=== PATIENT | male | born 1975 | race Caucasian/White ===

== ENCOUNTER 2019-10-05 05:32 | Inpatient (IN) ==
--- NOTE | 2019-09-24 10:38 | History & Physical Report ---
Date of Service September 24, 2019 Assessment & Plan (1) Neurogenic claudication due to lumbar spinal stenosis: At this time I am recommending urgent lumbar decompression fusion at L3-4 and L4-5. This would allow adequate neural decompression and reconstruction of the disc heights. Would help us address lateral recess stenosis and neuroforaminal disease. Patient has marked strength deficits and hopefully urgent procedure will limit his risk for permanent nerve damage weakness and neurologic sequela Present on Admission?: Yes History of Present Illness Chief Complaint: Back with bilateral leg pain and weakness Primary Care Provider: NO PCP This is a 44-year-old male who presents with marked decline in status describing numbness and weakness affecting the bilateral lower extremities. At this time he states his right leg is worse than the left. He describes on the buttocks anterior thigh extending below the knees. Any changes of position standing and walking exacerbate his pain. He can only ambulate a few yards before the pain is incapacitating. He is unable to ascend and descend steps secondary to quad weakness and he describes a right foot drop. Physical Exam Physical Exam: Patient is alert and oriented He is in obvious distress. He is able to stand stooped posture for a few seconds before he request to sit down. He demonstrates significant sensory deficits to the anterior thighs and anterior tibias. He has diminished deep tendon reflexes. He has a 4 5 bilateral quadriceps strength and a foot drop at a 3/5 on the right. Heart is regular rate and rhythm Lungs clear to auscultation Results & Data Diagnostic Findings MRI lumbar spine demonstrates evidence of massive disc herniation at L3-L4 with caudal migration. L4-5 is severe degenerative change and bilateral neuroforaminal stenosis. Axillary views demonstrate broad-based massive disc condition with caudal migration. There is also central disc herniation at L4-5. Both levels demonstrate significant neural displacement and spinal stenosis.
--- NOTE | 2019-09-27 20:31 | Anesthesiology Consultation ---
Date of Service September 27, 2019 Assessment & Plan (1) Encounter for pre-operative examination: PCP Clearance 09/21/19 = "Stable for surgery. History of coding during prior back surgerypatient is not aware of why this occurred, blamed on dehydration but seems unlikely ?Electrolytes. Holter 2011 was essentially normal, echo 2011 normal. Cardiology clearance requested." Patient to see cardiology 09/30 for pre-op clearance. Will attempt to obtain 2003 microdiscectomy records Chart Review Chart Review: Acceptable Risk for Surgery (Pending cardiology clearance) and Patient NOT seen in Pre Admission Testing History Surgery Operation Date: 10/05/19 07:15 Proposed Procedures p L3-L5 Decompression and Fusion; Spinal Cord Monitoring - Ronald Vera DO Height/Weight Height: 6 ft 1 in Weight: 105.959 kg Allergies Allergy/AdvReac Type Severity Reaction Status Date / Time oseltamivir [From Tamiflu] AdvReac Mild Tachycardia Verified 09/26/19 10:14 Penicillins AdvReac Mild Verified 09/26/19 10:14 Medications Home Medications Medication Instructions Recorded Confirmed Last Taken aspirin 81 mg PO QAM 09/26/19 09/26/19 Unknown cyclobenzaprine 10 mg PO BID 09/26/19 09/26/19 Unknown gabapentin 600 mg PO BID 09/26/19 09/26/19 Unknown simvastatin [Zocor] 20 mg PO HS 09/26/19 09/26/19 Unknown Past Medical History Medical History Abnormal EKG PT WAS SEEN BY PCP ON 09/21/2019 (DR. XAVIER, [facility] [place]), DISCOVERED AN "ABNORMAL EKG, THAT SHOWED A POSSIBLY HEART ATTACK WITHIN THE LAST 8 YEARS. PATIENT IS TO SEE CARDIOLOGY 10/01/2019 FOR CLEARANCE. Cholecystitis PATIENT IS TO HAVE HIS GALLBLADDER REMOVED AFTER HIS BACK SURGERY. Chronic kidney disease STAGE II - FOLLOWED WITH DR. DALEY IN [place] - ORDERED RECENT LAB WORK THROUGH THE [place]. WAS DONE ON 09/21/2019. Family history of reaction to anesthesia PATIENT MOTHER USUALLY GOES "TOO DEEP" WITH ANESTHESIA. UNKNOWN DETAILS. GERD (gastroesophageal reflux disease) OCCASIONALLY - OTC MEDICATIONS USED PRN History of anesthesia reaction PATIENT CODED X 2 WITH MICRODISCECTOMY SURGERY AT [facility] IN [place]. HIS SURGERY WAS DR. DAVID ALEGRIA. NO ANESTHESIA PRIOR TO OR SINCE THIS TIME. 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 PATIENT CODED ON THE OR TABLE X 2. Past Anesthesia History PATIENT REPORTS HE "CODED ON THE TABLE TWICE" DURING A MICRODISCECTOMY IN 2003. NO OTHER SURGICAL HISTORY. PT UNABLE TO PROVIDE DETAILS. Social History Smoking Status: Current every day smoker Smoking cigarettes per day: 1 PPD Do You Dip or Chew Tobacco: No Hx Alcohol Use: No Hx Substance Use: No Testing Laboratory Results 09/21/19 WBC: 9.7 H/H: 18/55 PLATELETS: 180 SODIUM: 140 POTASSIUM: 3.8 CHLORIDE: 103 CO2: 25 BUN: 9 CREATININE: 1.20 GLUCOSE: 90 A1C 5.8% Electrocardiogram Date: 09/21/19 Findings: + NSR @ (89bpm) PRWP V1-V3. No significant change compared to EKG from 11/20/11. *PCP felt the changes were significant, pt is to see cardio for clearance prior to surgery on 09/30.
[~2019-10-05 05:32] MED LIST: GENERAL ORDER PROBLEM SCH
[2019-10-05] MEDS ORDERED: LR 15ML/HR IV SCH (06:00)
[2019-10-05] MEDS ORDERED: GABAPENTIN 900 MG DOSE PO SCH (06:00)
[2019-10-05] MEDS ORDERED: CLINDAMYCIN 600 MG/54 ML BAG IV SCH (06:00)
--- NOTE | 2019-10-05 06:29 | XRay Report ---
XR chest Pre-admission PA/Lat CLINICAL HISTORY: Preoperative evaluation. COMPARISON STUDY: No previous studies for comparison. FINDINGS: Lung volumes are normal. Lungs are clear. There is no pneumothorax or pleural effusion. Car diac size is normal. Mediastinal contours are normal. There is no evidence for pulmonary edema. IMPRESSION: No acute cardiopulmonary findings. ACT 112: Negative or not required by law. Electronically signed by: Fercho Geller M.D. 10/05/2019 6:28 AM
[2019-10-05] MEDS ORDERED: BACITRACIN INJ 50,000 UNIT VIAL ONE (06:57)
[2019-10-05] MEDS ORDERED: BUPIVACAINE/EPINEPHRINE 0.5% MPF 1:200,000 10 ML VIAL ONE (06:57)
[2019-10-05] MEDS ORDERED: fentaNYL citrate 100 MCG/2 ML VIAL ONE ×2 (07:10→10:27)
[2019-10-05] MEDS ORDERED: LIDOCAINE 2% JELLY 5 ML TUBE ONE (07:12)
--- NOTE | 2019-10-05 07:23 | History & Physical Bridge Note ---
Date of Service October 05, 2019 History & Physical Bridge Note I have examined the patient, reviewed the History & Physical and in the interval since the performance of the History & Physical I have noted the following changes of clinical significance: no changes noted
[2019-10-05] MEDS ORDERED: ATROPINE SULFATE 0.1 MG/ML 10ML SYR IV PRN (07:25)
[2019-10-05] MEDS ORDERED: ePHEDrine sulfate 50 MG/ML AMP IV PRN (07:25)
[2019-10-05] MEDS ORDERED: fentaNYL citrate 100 MCG/2 ML VIAL IV PRN (07:25)
[2019-10-05] MEDS ORDERED: HYDROmorphone INJ 2 MG/ML SYR/VIAL IV PRN (07:25)
[2019-10-05] MEDS ORDERED: PROMETHAZINE HCL 12.5 MG in SODIUM CHLORIDE 0.9% 50 ML IV PRN ×2 (07:25→11:51)
[2019-10-05] MEDS ORDERED: ONDANSETRON INJ 2 MG/ML 2 ML VIAL IV PRN ×2 (07:25→11:51)
[2019-10-05] MEDS ORDERED: LIDOCAINE HCL 2% 2 ML VIAL/AMP(20MG/ML) INFIL ONE (08:31)
[2019-10-05] MEDS ORDERED: PROPOFOL IV EMULSION 10 MG/ML 20 ML VIAL IV ONE (08:31)
[2019-10-05] MEDS ORDERED: FLOSEAL HEMOSTATIC MATRIX 10ML TOP ONE (09:27)
[2019-10-05] MEDS ORDERED: PHENYLEPHRINE 100MCG/ML 5ML SYR ONE (09:30)
[2019-10-05] MEDS ORDERED: DEXAMETHASONE SOD INJ 4 MG/ML VIAL ONE (09:30)
[2019-10-05] MEDS ORDERED: ONDANSETRON INJ 2 MG/ML 2 ML VIAL ONE (09:30)
--- NOTE | 2019-10-05 10:11 | Fluoroscopy Report ---
FL lumbar spine 2-3V CLINICAL HISTORY: L3-L5 DECOMPRESSION AND FUSION COMPARISON STUDY: None FLUOROSCOPY TIME: 22nd. NUMBER OF FLUOROSCOPIC IMAGES: 2 FINDINGS: 2 intraoperative fluoroscopic spot images reveal postsurgical changes of an L3-4, and L4-5 discectomy and interbody fusion. There is posterior pedicle screw fixation with L3, L4, and L5 pedicl e screws and adjoining spinal rods. Postlaminectomy defects are visualized IMPRESSION: Postsurgical changes of an L3-5 spinal decompression and interbody fusion with pedicle s crew fixation ACT 112: Negative or not required by law. Electronically signed by: Galen Diane M.D. 10/05/2019 10:10 AM
--- NOTE | 2019-10-05 10:30 | Operative Report ---
Post Operative Report Pre & Post Diagnosis Operation Date: 10/05/19 07:15 Pre-Op Diagnosis: Spinal Stenosis, Lumbar Region with Neurogenic Claudication Post-Op Diagnosis: Spinal Stenosis, Lumbar Region with Neurogenic Claudication I identified the patient and participated in the time-out.: Yes Procedure Operation Date: 10/05/19 07:15 Actual Procedures #1 revision decompression with bilateral medial facetectomies and foraminotomies L3-4 L4-5. #2 posterior spinal fusion L3-4 L4-5. #3 placement posterior instrumentation L3-4 L4-5. #4 interbody fusion L3-4 L4-5. #5 placement of titanium cage 12 x 26 mm L3-4 L4-5. #6 placement locally harvested morselized autograft in the posterior lateral gutters. #7 placement infuse collagen sponge, master graft in the posterior lateral gutters and ostial amp and interbody space. Surgeon Ronald Vera, Duplicating Machine Mechanic None Estimated Blood Loss 200 Findings Consistent with Post-Op Diagnosis Specimens None Indications This is a 44-year-old male who presents with marked decline in status worsening weakness and limitations. Subsequently is here for urgent decompression fusion. Description of Procedure Patient was met with identified informed consent obtained. Patient was then taken to the operative suite underwent an patient placed in a prone position the Weston table on top of the Fly frame. All bony prominences well-padded eyes inspected to ensure no external pressure placed upon them. This point the lumbar spine was prepped and draped in normal sterile fashion. Sharp dissection with the assistance of Bovie cautery was performed down to and exposing the lamina and transverse processes of L3-L4-L5. Revision complete laminectomy of L4 and L3 including bilateral medial facetectomies and foraminotomies was then performed. Pedicle screws were then placed in L3-L4-L5 bilaterally with assistance of fluoroscopy and appropriate sized janna placed. Believe a transforaminal approach on the right complete discectomy of L3-4 was performed endplates coated to subcortical bleeding bone and a 11 x 26 mm titanium cage filled with osteo-bone graft tapped in position. I then proceeded to L for 5 and on the left complete discectomy was performed through a transforaminal approach. Endplates curetted to subcortical bleeding bone and 11 x 26 mm titanium cage filled with osteo-amp bone graft tapped in position. The rods were then locked in final position bilaterally. The transverse processes of L3 L4-5 burred to subcortical bleeding bone. Infuse collagen sponge master graft local autograft was then placed in the posterior lateral gutters. 15 round FAY drain inserted. The incision was then closed with 1 Vicryl in the fascia 2-0 Vicryl subcutaneously and 4 Monocryl for final skin closure. Steri-Strips dressings placed. Patient will continue PACU stable addition. Please note spinal cord monitoring was utilized that the procedure no changes noted. I attest to the content of the Intraoperative Record and any orders documented therein. Any exceptions are noted below.
--- NOTE | 2019-10-05 11:28 | Anesthesiology Progress Note ---
Date of Service October 05, 2019 Anesthesia Post Procedure Vital Signs Vital Signs: Temp Pulse Pulse Resp BP BP Pulse Ox 10/05/19 11:20 73 17 132/86 100 10/05/19 11:10 74 11 L 142/93 H 100 10/05/19 11:01 36.1 C L 70 12 138/95 99 10/05/19 06:01 36.5 C 90 18 137/93 98 Pain Intensity Bilateral Lower Back: Pain Intensity: 0 Transfer of Care Handoff Completed per policy Notes Mental Status: alert / awake / arousable and participated in evaluation Patient Amnestic to Procedure: Yes Nausea / Vomiting: adequately controlled Pain: adequately controlled Airway Patency, RR, SpO2: stable & adequate BP & HR: stable & adequate Hydration State: stable & adequate Anesthetic Complications: no major complications apparent and Pt Satisfied with anesthetic care
[2019-10-05] MEDS ORDERED: SOD PHOSPHATE/SOD BIPHOSPHATE ENEMA 132 ML BTL PR PRN (11:51)
[2019-10-05] MEDS ORDERED: LORazepam 0.5 MG/1 ML VIAL IV PRN (11:51)
[2019-10-05] MEDS ORDERED: METOCLOPRAMIDE HCL INJ 5 MG/ML 2 ML VIAL IV PRN (11:51)
[2019-10-05] MEDS ORDERED: ONDANSETRON 4 MG OD TAB PO PRN (11:51)
[2019-10-05] MEDS ORDERED: DO NOT ADMINISTER FLU VACCINE PRN (11:51)
[2019-10-05] MEDS ORDERED: DO NOT ADMINISTER PNEUMOCOCCAL VACCINE PRN (11:51)
[2019-10-05] MEDS ORDERED: ACETAMINOPHEN 1,000 MG/100 ML VIAL IV PRN (11:51)
[2019-10-05] MEDS ORDERED: MAGNESIUM HYDROXIDE SUSP 30 ML UDC PO PRN (11:51)
[2019-10-05] MEDS ORDERED: ALUMINUM/MAGNESIUM SUSP 30 ML UDC PO PRN (11:51)
[2019-10-05] MEDS ORDERED: FAMOTIDINE 20 MG TAB PO PRN (11:51)
[2019-10-05] MEDS ORDERED: bisacodyL 10 MG SUPP PR PRN (11:51)
[2019-10-05] MEDS ORDERED: LORazepam 0.5 MG TAB PO PRN (11:51)
[2019-10-05] MEDS ORDERED: HYDROmorphone INJ 1 MG/ML SYRINGE IV PRN (11:51)
[2019-10-05] MEDS ORDERED: NALOXONE HCL 0.4 MG/1 ML VIAL/CARP IV PRN (11:51)
[2019-10-05] MEDS ORDERED: HYDROmorphone INJ 0.5 MG/0.5 ML SYR IV PRN (11:51)
[2019-10-05] MEDS ORDERED: TRAMADOL HCL 50 MG TABLET PO PRN (11:51)
[2019-10-05] MEDS ORDERED: ACETAMINOPHEN 500 MG TAB PO PRN (11:51)
[2019-10-05] MEDS: LACTATED RINGER'S 1,000 ML IV SCH ×2 (12:24→19:08)
[2019-10-05] MEDS: KETOROLAC 30 MG/ML VIAL IV SCH ×2 (13:12→19:11)
[2019-10-05] MEDS: CLINDAMYCIN 600 MG in DEXTROSE 5% 50 ML IV SCH (17:34)
[2019-10-05] MEDS: DOCUSATE SODIUM/SENNA 50/8.6MG TAB PO SCH (21:01)
[2019-10-05] MEDS: GABAPENTIN 600 MG TAB PO SCH (21:01)
[2019-10-05] MEDS: CYCLOBENZAPRINE HCL 10 MG TAB PO SCH (21:01)
[2019-10-05] MEDS: SIMVASTATIN 20 MG TAB PO SCH (21:01)
[2019-10-06] MEDS: KETOROLAC 30 MG/ML VIAL IV SCH ×2 (00:13→06:31)
[2019-10-06] MEDS: CLINDAMYCIN 600 MG in DEXTROSE 5% 50 ML IV SCH (00:13)
[2019-10-06] MEDS: LACTATED RINGER'S 1,000 ML IV SCH (02:17)
[2019-10-06 06:26] LABS: Basophils # (auto) 0.01 K/uL (0-0.2); Basophils % (auto) 0.1 %; Eosinophils # (auto) 0.01 K/uL (0-0.5); Eosinophils % (auto) 0.1 %; Hematocrit (blood only) 43.2 % (42-52); Hemoglobin 14.7 g/dL (14.0-18.0); Immature Granulocytes # (auto) 0.05 K/uL (0.00-0.02); Immature Granulocytes % (auto) 0.3 %; Lymphocytes # (auto) 1.88 K/uL (1.2-3.4); Mean Corpuscular Hemoglobin 29.2 pg (25-34); Mean Corpuscular Volume 85.9 fL (80-100); Mean Platelet Volume 10.7 fL (7.4-10.4); Monocytes # (auto) 1.14 K/uL (0.11-0.59); Monocytes % (auto) 6.1 %; Neutrophils # (auto) 15.73 K/uL (1.4-6.5); Neutrophils % (auto) 83.4 %; Platelet Count 199 K/uL (130-400); RDW Coefficient of Variation 13.6 % (11.5-14.5); RDW Standard Deviation 42.8 fL (36.4-46.3); Red Blood Count 5.03 M/uL (4.7-6.1); White Blood Count 18.82 K/uL (4.8-10.8)
[2019-10-06] MEDS: POLYETHYLENE (MIRALAX) 17 GM PACK PO SCH ×3 (06:31→18:27)
[2019-10-06 06:51] LABS: BUN Creatinine Ratio 13.4 (10-20); Calcium 8.2 mg/dl (8.5-10.1); Creatinine Clr Calc Pharmacy 111.6 ml/min; Est GFR (African American) 95.8; Est GFR (Non-African American) 82.7; Potassium 3.9 mmol/L (3.5-5.1)
[2019-10-06] MEDS: CYCLOBENZAPRINE HCL 10 MG TAB PO SCH ×2 (08:03→20:12)
[2019-10-06] MEDS: ASPIRIN 81 MG ECTAB PO SCH (08:03)
[2019-10-06] MEDS: GABAPENTIN 600 MG TAB PO SCH ×2 (08:03→20:12)
--- NOTE | 2019-10-06 10:03 | Orthopedic Progress Note ---
Date of Service October 06, 2019 Assessment & Plan (1) Neurogenic claudication due to lumbar spinal stenosis: This time initiate physical therapy monitor his FAY output anticipate discharge home in the next few days. Present on Admission?: Yes Admission and Anticipated Discharge Date Admission Date: October 05, 2019 Subjective Patient's back pain is controlled leg pain markedly improved. Still strength deficits particular on the right dorsiflexion. Physical Exam Physical Exam: Patient is in the chair at the bedside appears comfortable. He has dorsiflexion weakness on the right full strength on the left. Results & Data ([facility] [place]) Vital Signs (Past 12 Hours) Vital Signs Temp Pulse Resp BP Pulse Ox 10/06/19 07:15 36.6 C 71 16 126/81 94 10/06/19 03:23 36.5 C 73 16 123/76 95 10/05/19 23:03 36.6 C 70 16 130/80 97
[2019-10-06] MEDS: SIMVASTATIN 20 MG TAB PO SCH (20:12)
[2019-10-06] MEDS: DOCUSATE SODIUM/SENNA 50/8.6MG TAB PO SCH (20:16)
[2019-10-07] MEDS: POLYETHYLENE (MIRALAX) 17 GM PACK PO SCH (01:31)
[2019-10-07] MEDS: OXYCODONE HCL IR 5 MG TAB (IMMEDIATE RELEASE) PO PRN ×2 (09:57→14:11)
[2019-10-07] MEDS: GABAPENTIN 600 MG TAB PO SCH (09:58)
[2019-10-07] MEDS: CYCLOBENZAPRINE HCL 10 MG TAB PO SCH (09:58)
[2019-10-07] MEDS: ASPIRIN 81 MG ECTAB PO SCH (09:58)
--- NOTE | 2019-10-07 11:21 | Discharge Summary ---
Date of Service October 07, 2019 Admission HPI Per Admitting Provider This is a 44-year-old male who presents with marked decline in status describing numbness and weakness affecting the bilateral lower extremities. At this time he states his right leg is worse than the left. He describes on the buttocks anterior thigh extending below the knees. Any changes of position standing and walking exacerbate his pain. He can only ambulate a few yards before the pain is incapacitating. He is unable to ascend and descend steps secondary to quad weakness and he describes a right foot drop. Principal Diagnosis Lumbar spinal stenosis with neurogenic claudication Discharge Data Allergies Allergy/AdvReac Type Severity Reaction Status Date / Time oseltamivir [From Tamiflu] AdvReac Mild Tachycardia Verified 10/05/19 05:58 Penicillins AdvReac Mild Verified 10/05/19 05:58 Consultations 10/05/19 11:51 Consult Case Management - Discharge Planning Routine Procedures Performed Operation Date: 10/05/19 07:15 Actual Procedures p L3-L5 Decompression and Fusion; Spinal Cord Monitoring(Not Applicable) - Ronald Vera DO Ordered Studies 10/05/19 07:15 FL fluoroscopy <1hr Routine FL lumbar spine 2-3V Routine Hospital Course (1) Neurogenic claudication due to lumbar spinal stenosis: Patient underwent multilevel lumbar decompression fusion tolerated this well was taken to the orthopedic floor postoperative. Postop day 1 he had improvement of his leg pain but still significant weakness. He was able to tolerate therapy. On postop day #2 he was noting improvement. Still strength deficits particularly dorsiflexion on the right but pain controlled and FAY drain decreasing probably. Subsequently discharged home. Discharge orders instructions from the chart for further review. Total Time Total Time Spent Total Time Spent (In Minutes): 20 minutes Discharge Plan Discharge Items Patient Disposition: Home - Self-Care Reason For Visit: Spinal Stenosis, Lumbar Region with Neurogenic Cla Discharge Diagnosis: Lumbar disc herniation with neurologic deficit Activity: As commented below Non-emergency contact: Primary Care Provider Call non-emergency contact if: you have any medication questions Follow-up/Referrals: Mynor Parham MD [Primary Care Provider] - Diet: Regular Addtl Attending Provider Instructions: ACTIVITY RECOMMENDATIONS: SELF CARE INSTRUCTIONS AFTER THORACIC/LUMBAR FUSIONS 1. You may walk to your tolerance. It is good exercise for your legs and back. Expect some back and intermittent leg aches and pains. 2. You may perform "counter-top" level activities (make a sandwich, kimo with a project, etc.). 3. No bending or lifting of more than 10 pounds or back twisting of any nature (roll like a log when turning in bed). 4. You may ride in a car for 20-30 minutes at a time. No driving until after your first visit with your doctor. 5. Frequent changes of position and restricting sitting to 30 minutes at a time will help limit the amount of back spasms and stiffness you may experience. 6. You may discontinue the use of ambulatory aids (cane, crutches, etc.) once your strength and confidence allow. 7. You may fpga engineer the shower and let water strike your incision when you arrive home at least once daily. Do not take a tub bath, sit in a hot tub or go into a swimming pool until after your first recheck in the office. SPECIAL CARE INSTRUCTIONS: VERY IMPORTANT TO READ AND REVIEW A. Your surgical incision has been closed with a cosmetic suture under the skin that will dissolve in about 6 weeks. In 14 days, you can use a pair of clean scissors and cut the suture that is left outside of the skin at t he ends of your incision. 1. The small skin tapes can be removed 7 days after surgery if they have not fallen off by that point. 2. You may keep the wound open to air as much as possible to promote healing after post-op day number 5 unless told otherwise by your doctor. 3. If you think the wound looks like it is becoming infected (redness or worsening drainage) and/or you are experiencing fever, chill or worsening back pain and muscle spasms, contact the office so that we may evaluate you as soon as possible. B. Complications are uncommon, but please contact us if you have any signs or symptoms of: 1. wound infection (fever higher than 102.5 degrees F, redness, separation of wound, drainage, or increasing pain from the incision) 2. blood clots in legs (pain, swelling, redness and warmth in legs) 3. urinary tract infection (fever higher than 102.5 degrees F, burning upon urination or increased frequency of urination) 4. nerve problems (inability to walk on your toes or heels, numbness, loss of bowel or bladder control) 5. any other symptoms that concern you C. Please call the office at if you have any concerns or questions about your operation or recovery. D. No smoking! Smoking drastically decreases the chance of a solid fusion. E. Do not take any anti-inflammatory medications (Indocin, Advil, Motrin, Aspirin, Naprosyn, etc.) as these may inhibit the chance of a solid fusion. Tylenol is okay to take for pain. MANAGING PAIN AFTER SPINAL SURGERY 1. Narcotic medication is intended for short-term use and will be provided for surgical pain. Surgical pain usually lasts for a period of 4-6 weeks. Narcotic medication includes Percocet, Vicodin, Darvocet, Tylenol #3 or Lortab. 2. Longer-term pain is more appropriately treated with non-narcotic medication such as Tylenol ES. 3. Muscle spasm is not appropriately treated with narcotics. Muscle relaxers such as Soma, Flexeril or Skelaxin can be used along with Tylenol ES. 4. Remember that we all live with some "aches and pains". This is not unusual or uncommon after an injury or as we get older. a. Back pain is expected and may include muscle spasms for 4 to 6 weeks after surgery. The pain should gradually improve. If the pain worsens for no apparent reason, please contact the office. b. Intermittent leg pain may also be experienced and should not be concerned about unless it worsens for no apparent reason. If so, please contact the office. 5. We will provide appropriate medication within the normal guidelines of their prescribed use. We will also be very cautious and aware of potential abuse and extended duration of patients' medication needs. a. Pain medications are for your comfort and to assist with sleep and rest so that the tissue can heal. They are not provided in order to return to normal activity and should not be used through the day. To do so or worsening pain at night can result from ongoing tissue damage and development of tolerance to the prescribed medicine. 6. Please allow 2-3 days to process refills. Prescriptions will not be mailed but must be picked up at the office. FOLLOW UP VISIT: Keep your scheduled follow-up appointment. Any questions, please call the office at . Pending Studies at Discharge: No Stand-Alone Forms: [facility], Smoking Cessation Medications and DC Order Prescriptions: New tramadol 50 mg tablet 50 mg PO Q6H PRN (Reason: pain, moderate) Qty: 30 RF: 0 oxycodone 5 mg tablet 5 mg PO Q6H PRN (Reason: pain, severe) Qty: 20 RF: 0 Continued cyclobenzaprine 10 mg Tablet 10 mg PO BID RF: 0 gabapentin 600 mg Tablet 600 mg PO BID RF: 0 aspirin 81 mg Tablet,Delayed Release (Dr/Ec) 81 mg PO QAM RF: 0 simvastatin [Zocor] 20 mg Tablet 20 mg PO HS RF: 0 Discharge Orders: Discharge Order (Routine); Ordered 10/07/19 Ordered By: Ronald Vera Admission Data Admit Date/Time: 10/05/19 11:05 Attending Provider: Ronald Vera Admit Provider: Ronald Vera Primary Care Provider: Mynor Parham
== END 2019-10-07 14:38 | disposition home or self-care (01) | DRG 454 ==
LOC: ASU 05:32 → 3E 11:05